=== PATIENT | female | born 1995 | race Caucasian/White ===

== ENCOUNTER 2021-12-10 21:05 | Emergency (ER) | payer MEDICAID ==
[2021-12-10] MEDS ORDERED: Cephalexin 500 MG Cap PO ONE (23:47)
== END 2021-12-11 00:02 | disposition home or self-care (01) ==
LOC: MW.ED 21:05
DX: O23.42 Unspecified infection of urinary tract in pregnancy, second trimester (principal); Z3A.18 18 weeks gestation of pregnancy; Z90.49 Acquired absence of other specified parts of digestive tract
CPT/HCPCS: 81001; 87086; 99283; A9270